=== PATIENT | female | born 2000 | race Caucasian/White ===

== ENCOUNTER 2025-09-28 00:01 | Emergency (ER) | payer MEDICAID ==
[~2025-09-28] VITALS: Ht 162.6 cm; Wt 70.0 kg
[2025-09-28 00:05] VITALS: O2SAT 98
[2025-09-28 02:15] LABS: BASOPHILS % 0.7 % (0.0-2.0); EOSINOPHILS % 2.5 % (0.0-5.0); HEMATOCRIT. 38.6 % (36.0-48.0); HEMOGLOBIN. 12.6 g/dL (12.0-16.0); LYMPHOCYTES % 35.3 % (20.0-50.0); MEAN PLATELET VOLUME 8.5 fl (7.4-10.4); MONOCYTES % 9.3 % (2.0-8.0); NEUTROPHILS % 52.2 % (40.0-76.0); PLATELET 366 x1000/uL (130-400); RED BLOOD CELL COUNT 4.39 mill/uL (4.2-5.4); RED CELL DISTRIBUTION WIDTH 13.0 % (11.6-14.6)
[2025-09-28 02:18] LABS: CREATININE 0.6 mg/dL (0.6-1.0); UREA NITROGEN BLOOD 7 mg/dL (9-23)
[2025-09-28 02:21] LABS: B-HCG QUANTITATIVE 2 mIU/mL (<6)
[2025-09-28] MEDS: SODIUM CHLORIDE 0.9% 1,000 ML IV ONE (02:35)
[2025-09-28 04:51] LABS: CLARITY URINE CLEAR (CLEAR); COLOR URINE YELLOW (YELLOW); GLUCOSE URINE NEGATIVE (NEGATIVE); KETONES URINE NEGATIVE (NEGATIVE); NITRITE URINE NEGATIVE (NEGATIVE); OCCULT BLOOD URINE 3+ (NEGATIVE); PH URINE 7.5 (4.5-8.0); PROTEIN URINE NEGATIVE (NEGATIVE); SPECIFIC GRAVITY URINE 1.010 (1.005-1.030)
[2025-09-28 04:52] LABS: LEUKOCYTE ESTERASE URINE TRACE (NEGATIVE); UROBILINOGEN URINE 0.2 E.U./dL (0.2-1.0)
[2025-09-28 04:58] VITALS: BP 114/78; PULSE 68; RESP 19; TEMP 37; O2SAT 99
[2025-09-28 05:26] LABS: BACTERIA URINE 1+; RBC URINE 0-2 /hpf (0-2); SQUAMOUS EPITHELIAL CELL URINE 2+ /lpf (RARE/1+)
== END 2025-09-28 05:15 | disposition home or self-care (01) ==
LOC: ER 00:31
DX: N93.8 Other specified abnormal uterine and vaginal bleeding (principal); R10.20 Pelvic and perineal pain unspecified side
CPT/HCPCS: 99285; 76830; 76856; 80048; 81003; 84702; 85025; 86850; 86900; 86901; 87086; 36415; J7030